=== PATIENT | female | born 1940 | race Caucasian/White ===

== ENCOUNTER → 2017-02-10 | Outpatient (CLI) | payer MEDICARE, OTHER | LOC: MAMO 10:28 | DX: Z12.31 Encounter for screening mammogram for malignant neoplasm of breast (principal) | CPT/HCPCS: G0202 ==

== ENCOUNTER → 2021-03-14 | Outpatient (CLI) | payer MEDICARE, OTHER ==
[2021-03-14 09:33] LABS: RED BLOOD COUNT 4.24 M/UL (4.00-5.10)
== END ==
LOC: LAB 09:00
PROVIDERS: Surgery
DX: K21.9 Gastro-esophageal reflux disease without esophagitis (principal); J98.11 Atelectasis
CPT/HCPCS: 36415; 71046; 80048; 85025; 93005

== ENCOUNTER → 2021-10-21 | Outpatient (CLI) | payer MEDICARE, OTHER ==
[2021-10-21 11:56] LABS: ADENOVIRUS F 40/41 Not Detected (Negative); ASTROVIRUS Not Detected (Negative); CAMPYLOBACTER Not Detected (Negative); CLOSTRIDIUM DIFFICILE TOX A/B Not Detected (Negative); CRYPTOSPORIDIUM Not Detected (Negative); E.COLI 0157 Not Detected (Negative); ENTAMOEBA HISTOLYTICA Not Detected (Negative); ENTEROAGGREGATIVE E.COLI (EAEC Not Detected (Negative); ENTEROPATHOGENIC E.COLI (EPEC) Not Detected (Negative); ENTEROTOXIGENIC E.COLI (ETEC) Not Detected (Negative); GIARDIA LAMBLIA Not Detected (Negative); NOROVIRUS GI/GII Not Detected (Negative); PLESIOMONAS SHIGELLOIDES Not Detected (Negative); ROTOVIRUS A Not Detected (Negative); SALMONELLA Not Detected (Negative); SAPOVIRUS Not Detected (Negative); SHIG/ENTEROINVAS.ECOLI (EIEC) Not Detected (Negative); SHIGA-LIK TOX.PRO.E.COLI (STEC Not Detected (Negative); VIBRIO Not Detected (Negative); VIBRIO CHOLERAE Not Detected (Negative); YERSINIA ENTEROCOLITICA Not Detected (Negative)
== END ==
LOC: LBRF 11:21
PROVIDERS: Family Medicine
DX: R19.7 Diarrhea, unspecified (principal)
CPT/HCPCS: 87177; 87209; 87507; 89055

== ENCOUNTER 2021-12-31 05:09 | Emergency (ER) | payer MEDICARE, OTHER ==
[2021-12-31 05:59] LABS: HEMOGLOBIN 13.1 gm/dl (12.3-15.3); RED BLOOD COUNT 4.39 M/UL (4.00-5.10); WHITE BLOOD COUNT 10.7 K/UL (4.5-11.0)
[2021-12-31 06:22] LABS: BUN/CREATININE RATIO 12 (0-10)
[2021-12-31] MEDS ORDERED: ZOFRAN ODT 4 MG4 MG SL (07:37)
== END 2021-12-31 07:45 | disposition home or self-care (01) ==
LOC: ER1 05:09
PROVIDERS: Family Medicine
DX: R19.7 Diarrhea, unspecified (principal); E11.9 Type 2 diabetes mellitus without complications; I10 Essential (primary) hypertension; Z90.710 Acquired absence of both cervix and uterus
CPT/HCPCS: 80053; 81001; 83690; 85025; 99284

== ENCOUNTER 2022-01-17 11:28 | Emergency (ER) | payer MEDICARE, OTHER ==
[~2022-01-17 11:28] MED LIST: ZOFRAN ODT 4 MG4 MG SL
[2022-01-17 12:49] LABS: HEMOGLOBIN 13.3 gm/dl (12.3-15.3); RED BLOOD COUNT 4.55 M/UL (4.00-5.10); WHITE BLOOD COUNT 8.6 K/UL (4.5-11.0)
[2022-01-17 13:11] LABS: BUN/CREATININE RATIO 17 (0-10)
[2022-01-17] MEDS ORDERED: ZOFRAN 4 MG4 MG/5 ML PO (17:58)
== END 2022-01-17 18:21 | disposition home or self-care (01) ==
LOC: ER1 11:28
PROVIDERS: Physician Assistant Medical
DX: R51.9 Headache, unspecified (principal); R11.0 Nausea; R13.10 Dysphagia, unspecified; E10.9 Type 1 diabetes mellitus without complications; Z20.822 Contact with and (suspected) exposure to COVID-19
CPT/HCPCS: 0240U; 70450; 70491; 71045; 80053; 82550; 82553; 84484; 85025; 93005; 96374; 99284; C9113; Q9967

== ENCOUNTER 2022-01-24 06:10 | Emergency (ER) | payer MEDICARE, OTHER ==
[~2022-01-24 06:10] MED LIST changes: +ZOFRAN 4 MG4 MG/5 ML PO
[2022-01-24 06:54] LABS: HEMOGLOBIN 13.8 gm/dl (12.3-15.3); RED BLOOD COUNT 4.6 M/UL (4.00-5.10)
[2022-01-24 07:14] LABS: BUN/CREATININE RATIO 9 (0-10)
== END 2022-01-24 10:41 | disposition home or self-care (01) ==
LOC: ER1 06:10
PROVIDERS: Nurse Practitioner
DX: R10.9 Unspecified abdominal pain (principal); R10.813 Right lower quadrant abdominal tenderness; R10.814 Left lower quadrant abdominal tenderness; E11.9 Type 2 diabetes mellitus without complications; I10 Essential (primary) hypertension; Z90.710 Acquired absence of both cervix and uterus; Z20.822 Contact with and (suspected) exposure to COVID-19
CPT/HCPCS: 0240U; 51701; 71045; 80053; 80076; 81001; 82150; 82550; 82553; 83605; 83690; 84484; 85025; 85652; 86140; 87040; 93005; 99284; Q9967

== ENCOUNTER → 2022-03-24 | Outpatient (CLI) | payer MEDICARE, OTHER | LOC: LAB 09:05 | DX: R13.11 Dysphagia, oral phase (principal); Z20.822 Contact with and (suspected) exposure to COVID-19 | CPT/HCPCS: U0003 ==

== ENCOUNTER → 2022-03-26 | Outpatient (CLI) | payer MEDICARE, OTHER | LOC: RAD 08:13 | DX: R13.11 Dysphagia, oral phase (principal) | CPT/HCPCS: 74230; 92611-GN ==

== ENCOUNTER → 2022-06-01 | Outpatient (CLI) | payer MEDICARE, OTHER | LOC: KOH-I 12:40 | DX: M79.605 Pain in left leg (principal); D17.24 Benign lipomatous neoplasm of skin and subcutaneous tissue of left leg | CPT/HCPCS: 73718 ==